=== PATIENT | female | born 1935 | race Caucasian/White ===

== ENCOUNTER 2016-08-17 16:49 | Observation (INO) | payer MEDICARE, BC ==
[~2016-08-17 16:49] MED LIST: ASPIRIN 32325 MG/TAB PO; CEPHALEXIN500 M1 PO; CETIRIZINE10 MG PO; DEBROX OT; FISH OIL500 MG PO; LISINOPRIL5 MG PO; TYLENOL 650MG650 M2 PO
--- NOTE | 2016-08-17 16:50 | NUR ---
received patient for Observation status admission, she is alert but seems confused as to why she is here, after lengthy discussion about UTI she states, "well I didnt even have any symptoms" she was then made aware that her neighbor was concerned about her and felt she needed to be seen by a doctor. She seemed ok with this information. She does ramble about her ears and new wipes wondering if this could be the cause, she also expresses concern about what is on TV, and meeting a friend at [facility], she is encouraged to be patient with us and and she states she will
[2016-08-17 17:58] VITALS: BP 184/99
[2016-08-17 17:59] VITALS: BP 184/99
--- NOTE | 2016-08-17 18:00 | NUR ---
ate a small amount of dinner, talkative, still concerned about the TV until we were able to find [employer] TV and she staes that is what she watches.
[2016-08-17 19:29] VITALS: BP 180/99
--- NOTE | 2016-08-17 19:32 | NUR ---
report to Kelsey SHARMA
[2016-08-17 23:14] VITALS: BP 137/69
[2016-08-18 03:01] VITALS: BP 164/83
[2016-08-18 06:13] VITALS: BP 185/103
--- NOTE | 2016-08-18 06:50 | NUR ---
Report received from EDITH Cole
--- NOTE | 2016-08-18 07:20 | NUR ---
Assessment completed. Pt up to chair. Reports not sleeping well due to bed not being comfortable. Reports neck pain from pillows/bed. Alert and oriented to person, birthdate, place, not to date. Steady gait noted, clear pale yellow urine. Denies shortness of air.
[2016-08-18 11:29] VITALS: BP 173/96
[2016-08-18 14:21] VITALS: BP 164/86
--- NOTE | 2016-08-18 17:40 | NUR ---
Received a call from Remy Siu, pts neighbor. He was checking to see if pt needed a ride home. This nurse inquired to pt's baseline mental status. Remy reported this was pretty close to her baseline mentation. 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 He reported her family was all out state. He is willing to be her contact and gave me his cell phone number to list on her chart. [phone].
--- NOTE | 2016-08-18 17:45 | NUR ---
After initiation of IV rocephin, pt grabbed IV and stated "finally I got that out" as she pulled her IV out with tape still attached. Infusion paused.
--- NOTE | 2016-08-18 17:55 | NUR ---
August, RN successfully placed a new 20g IV to right hand without difficulties. Flushed with no pain or swelling at the site. Restarted NS with Rocephin.
[2016-08-18 18:24] VITALS: BP 183/93
--- NOTE | 2016-08-18 18:55 | NUR ---
Report given to EDITH Trinh. Pt up to chair intermittently confused and attempting to get up without assistance. No reports of pain at this time.
--- NOTE | 2016-08-18 19:30 | NUR ---
REPORT RECEIVED. ASSESSMENT COMPLETE. PT ALERT BUT VERY CONFUSED. PT DOES NOT KNOW WHERE SHE IS AND WHY SHE IS AT THE HOSPITAL. PT TRYING TO GET OUT OF BED. INFORMED HER SHE IS AT THE HOSPITAL AND THAT SHE HAS AN UTI. PT STATED "OH, I DO!" PT DENIES PAIN. ls ARE CLEAR. IV IN R WRIST WNL. PT SETTLED BACK IN BED. DENIES ANY OTHER NEEDS AT THIS TIME.
--- NOTE | 2016-08-18 21:30 | NUR ---
REPORT GIVEN TO EDITH LONG.
--- NOTE | 2016-08-18 22:10 | NUR ---
Patient refused to have blood pressure taken.
[2016-08-19 02:18] VITALS: BP 171/91
--- NOTE | 2016-08-19 04:14 | NUR ---
Bed alarm sounding. Entered patient room. Patient states "where am I, I just need to go to the bathroom." Directed patient to the bathroom. Orientation provided. Ambulated to the bathroom with stand by assist. Steady gait noted. Returned to bed. INT to right hand. Denies pain or needs. Fall precautions in place.
[2016-08-19 06:09] VITALS: BP 180/91
--- NOTE | 2016-08-19 07:30 | NUR ---
Pt alert to self only. Oriented to place and time. oriented to surroundings. Pt ambulates with steady gait. Wanders in sharp multle times " looking for her car to go home" reoriented that she is in the hospital and that her neighbor drove her here. Pt easily redirected back to room.
--- NOTE | 2016-08-19 09:13 | NUR ---
Pt showers with standy by asssit. IV removed during shower by patient. Pt cued with drying and dressing. Tolerates well. Denies pain.
[2016-08-19 10:48] VITALS: BP 191/108
[2016-08-19] MEDS ORDERED: MACROBID 100 M100 MG PO (11:00)
--- NOTE | 2016-08-19 12:36 | NUR ---
Pt leaves with friend/neighbor Mikaela Li. Reviewed discharge instructions with pt and Mikaela. Both verbalize understanding.
[2016-08-28] MEDS ORDERED: MACROBID 100 M100 MG (05:54)
== END 2016-08-19 12:36 | disposition home health service (06) ==
LOC: MED/SURG 16:49
PROVIDERS: ADMIT Nurse Practitioner Family
DX: N39.0 Urinary tract infection, site not specified (principal); R40.4 Transient alteration of awareness; R45.1 Restlessness and agitation; R42 Dizziness and giddiness; I10 Essential (primary) hypertension; Z87.891 Personal history of nicotine dependence; R41.0 Disorientation, unspecified
CPT/HCPCS: A4353; G0378; G0379; J0696; J7030

== ENCOUNTER → 2016-08-22 | Outpatient (CLI) | payer MEDICARE, BC ==
[2016-08-19 10:48] VITALS: BP 191/108
[~2016-08-22] MED LIST changes: +LISINOPRIL10 MG PO; +MACROBID 100 M100 MG; +MACROBID 100 M100 MG PO
== END ==
LOC: LAB 17:21
DX: N39.0 Urinary tract infection, site not specified (principal)

== ENCOUNTER 2016-08-27 13:51 | Emergency (ER) | payer MEDICARE, BC ==
[~2016-08-27 13:51] MED LIST changes: -LISINOPRIL10 MG PO; -MACROBID 100 M100 MG
[2016-08-27] MEDS ORDERED: LISINOPRIL10 MG PO (14:31)
[2016-08-27 14:47] VITALS: BP 184/86
[2016-08-28] MEDS ORDERED: MACROBID 100 M100 MG (05:54)
== END 2016-08-27 14:45 | disposition home or self-care (01) ==
LOC: ED 13:51
DX: I10 Essential (primary) hypertension (principal); Z91.138 Patient's unintentional underdosing of medication regimen for other reason

== ENCOUNTER → 2016-09-13 | Outpatient (CLI) | payer MEDICARE, BC ==
[2016-08-27 14:47] VITALS: BP 184/86
[~2016-09-13] MED LIST changes: +LISINOPRIL10 MG PO; +MACROBID 100 M100 MG
== END ==
LOC: RAD 13:50
DX: I10 Essential (primary) hypertension (principal); F03.90 Unspecified dementia, unspecified severity, without behavioral disturbance, psychotic disturbance, mood disturbance, and anxiety
CPT/HCPCS: Q9967

== ENCOUNTER → 2016-10-15 | Outpatient (CLI) | payer MEDICARE, BC | LOC: LAB 15:27 | DX: R19.7 Diarrhea, unspecified (principal) ==

== ENCOUNTER → 2017-02-26 | Outpatient (CLI) | payer MEDICARE, BC ==
[2017-02-26 14:24] LABS: URINE APPEARANCE CLOUDY; URINE BILIRUBIN NEGATIVE (NEGATIVE); URINE BLOOD TRACE (NEGATIVE); URINE COLOR YELLOW; URINE GLUCOSE NEGATIVE (NEGATIVE); URINE KETONE NEGATIVE (NEGATIVE); URINE NITRATE NEGATIVE (NEGATIVE); URINE PROTEIN(semi-quant) TRACE mg/dL (NEGATIVE); URINE UROBILINOGEN NORMAL (NORMAL)
[2017-02-26 14:25] LABS: HEMATOCRIT 37.5 % (37.0-47.0); HEMOGLOBIN 12.7 g/dL (12.5-16.0); RED BLOOD COUNT 4.05 M/mm3 (4.10-5.30); RED CELL DISTRIBUTION WIDTH 12.9 % (11.5-14.5); URINE LEUKOCYTE ESTERASE 2+ (NEGATIVE); URINE WBC 31-50 /hpf (0-3); WHITE BLOOD COUNT 7.2 K/mm3 (4.8-10.8)
== END ==
LOC: LAB 14:02
PROVIDERS: Family Medicine
DX: R42 Dizziness and giddiness (principal)

== ENCOUNTER → 2017-03-03 | Outpatient (CLI) | payer MEDICARE, BC ==
[2017-03-03 12:48] LABS: BUN/CREATININE RATIO 21.4 (6.0-26.0); CALCIUM 10.3 mg/dL (8.4-10.2); POTASSIUM 4.2 mmol/L (3.6-5.0)
== END ==
LOC: LAB 12:26
PROVIDERS: Family Medicine
DX: R42 Dizziness and giddiness (principal)

== ENCOUNTER → 2017-05-08 | Outpatient (CLI) | payer MEDICARE, BC ==
[2017-05-08 15:23] LABS: URINE COLOR YELLOW
[2017-05-08 15:24] LABS: URINE APPEARANCE CLOUDY; URINE BILIRUBIN NEGATIVE (NEGATIVE); URINE BLOOD NEGATIVE (NEGATIVE); URINE GLUCOSE NEGATIVE (NEGATIVE); URINE KETONE NEGATIVE (NEGATIVE); URINE LEUKOCYTE ESTERASE NEGATIVE (NEGATIVE); URINE NITRATE NEGATIVE (NEGATIVE); URINE PROTEIN(semi-quant) TRACE mg/dL (NEGATIVE); URINE UROBILINOGEN NORMAL (NORMAL)
== END ==
LOC: LAB 09:00
PROVIDERS: Family Medicine
DX: R82.90 Unspecified abnormal findings in urine (principal)

== ENCOUNTER → 2017-05-16 | Outpatient (CLI) | payer MEDICARE ==
[2017-05-16 12:32] LABS: EOS # 0.2 (0.04-0.40); EOS % 2.5 % (1.0-5.0); HEMATOCRIT 37.9 % (37.0-47.0); HEMOGLOBIN 12.5 g/dL (12.5-16.0); LYMPH# 1.8 (1.50-4.00); MEAN CELL VOLUME 92 fl (78-100); MEAN CORPUSCULAR HEMOGLOBIN 30 pg (27-31); MEAN CORPUSCULAR HGB CONC 33 g/dL (33-37); MEAN PLATELET VOLUME 11.2 fl (7.4-10.4); MONO # 0.5 (0.20-0.80); NEU # 4.4 (1.40-6.50); PLATELET COUNT 206 K/mm3 (130-400); RED BLOOD COUNT 4.12 M/mm3 (4.10-5.30); RED CELL DISTRIBUTION WIDTH 12.9 % (11.5-14.5); WHITE BLOOD COUNT 6.9 K/mm3 (4.8-10.8)
[2017-05-16 12:54] LABS: BUN/CREATININE RATIO 36.5 (6.0-26.0); CALCIUM 10.3 mg/dL (8.4-10.2); POTASSIUM 4.2 mmol/L (3.6-5.0); TOTAL BILIRUBIN 0.7 mg/dL (0.2-1.3); TOTAL PROTEIN 6.8 g/dL (6.3-8.2)
== END ==
LOC: LAB 12:12
PROVIDERS: Family Medicine
DX: I10 Essential (primary) hypertension (principal); D17.21 Benign lipomatous neoplasm of skin and subcutaneous tissue of right arm; R63.4 Abnormal weight loss

== ENCOUNTER → 2017-09-11 | Outpatient (CLI) | payer MEDICARE ==
[2017-09-11 15:57] LABS: EOS # 0.2 (0.04-0.40); EOS % 2.5 % (1.0-5.0); HEMATOCRIT 35.1 % (37.0-47.0); HEMOGLOBIN 11.6 g/dL (12.5-16.0); LYMPH# 2.4 (1.50-4.00); MEAN CELL VOLUME 94 fl (78-100); MEAN CORPUSCULAR HEMOGLOBIN 31 pg (27-31); MEAN CORPUSCULAR HGB CONC 33 g/dL (33-37); MEAN PLATELET VOLUME 10.2 fl (7.4-10.4); MONO # 0.6 (0.20-0.80); NEU # 5.6 (1.40-6.50); PLATELET COUNT 331 K/mm3 (130-400); RED BLOOD COUNT 3.73 M/mm3 (4.10-5.30); RED CELL DISTRIBUTION WIDTH 12.7 % (11.5-14.5); WHITE BLOOD COUNT 8.9 K/mm3 (4.8-10.8)
[2017-09-11 16:15] LABS: ALBUMIN 4.1 g/dL (3.5-5.0); BUN/CREATININE RATIO 33.3 (6.0-26.0); CALCIUM 10.2 mg/dL (8.4-10.2); POTASSIUM 4.2 mmol/L (3.6-5.0); TOTAL BILIRUBIN 0.3 mg/dL (0.2-1.3); TOTAL PROTEIN 7.7 g/dL (6.3-8.2)
== END ==
LOC: RAD 15:16
PROVIDERS: Family Medicine
DX: R91.8 Other nonspecific abnormal finding of lung field (principal); M19.012 Primary osteoarthritis, left shoulder; M19.011 Primary osteoarthritis, right shoulder; R05 Cough; R63.0 Anorexia; M79.9 Soft tissue disorder, unspecified; L74.9 Eccrine sweat disorder, unspecified; I10 Essential (primary) hypertension; F01.50 Vascular dementia, unspecified severity, without behavioral disturbance, psychotic disturbance, mood disturbance, and anxiety

== ENCOUNTER → 2018-01-26 | Outpatient (CLI) | payer MEDICARE ==
[2018-01-26 10:44] LABS: URINE APPEARANCE HAZY; URINE BILIRUBIN NEGATIVE (NEGATIVE); URINE BLOOD NEGATIVE (NEGATIVE); URINE COLOR YELLOW; URINE GLUCOSE NEGATIVE (NEGATIVE); URINE KETONE NEGATIVE (NEGATIVE); URINE LEUKOCYTE ESTERASE NEGATIVE (NEGATIVE); URINE NITRATE NEGATIVE (NEGATIVE); URINE PROTEIN(semi-quant) TRACE mg/dL (NEGATIVE); URINE UROBILINOGEN NORMAL (NORMAL)
[2018-01-26 10:45] LABS: URINE MUCUS PRESENT (NOT PRESENT)
== END ==
LOC: LAB 08:22
PROVIDERS: Family Medicine
DX: N39.0 Urinary tract infection, site not specified (principal)

== ENCOUNTER → 2018-01-28 | Outpatient (CLI) | payer MEDICARE ==
[2018-01-28 15:33] LABS: EOS # 0.5 (0.04-0.40); EOS % 5.7 % (1.0-5.0); HEMATOCRIT 34.2 % (37.0-47.0); HEMOGLOBIN 11.2 g/dL (12.5-16.0); LYMPH# 1.8 (1.50-4.00); MEAN CELL VOLUME 94 fl (78-100); MEAN CORPUSCULAR HEMOGLOBIN 31 pg (27-31); MEAN CORPUSCULAR HGB CONC 33 g/dL (33-37); MEAN PLATELET VOLUME 10.4 fl (7.4-10.4); MONO # 0.8 (0.20-0.80); NEU # 5.2 (1.40-6.50); PLATELET COUNT 250 K/mm3 (130-400); RED BLOOD COUNT 3.63 M/mm3 (4.10-5.30); RED CELL DISTRIBUTION WIDTH 13.1 % (11.5-14.5); WHITE BLOOD COUNT 8.3 K/mm3 (4.8-10.8)
== END ==
LOC: LAB 15:09
PROVIDERS: Family Medicine
DX: R05 Cough (principal)

== ENCOUNTER → 2018-04-17 | Outpatient (CLI) | payer MEDICARE ==
[2018-04-17 20:48] LABS: URINE APPEARANCE CLOUDY; URINE COLOR YELLOW
[2018-04-17 20:49] LABS: URINE BILIRUBIN NEGATIVE (NEGATIVE); URINE BLOOD 50 ery/uL (NEGATIVE); URINE GLUCOSE NEGATIVE (NEGATIVE); URINE KETONE NEGATIVE (NEGATIVE); URINE LEUKOCYTE ESTERASE 2+ (NEGATIVE); URINE NITRATE NEGATIVE (NEGATIVE); URINE PROTEIN(semi-quant) 1+ mg/dL (NEGATIVE); URINE UROBILINOGEN NORMAL (NORMAL); URINE WBC >50 /hpf (0-3)
[2018-04-17 20:50] LABS: URINE MUCUS PRESENT (NOT PRESENT)
== END ==
LOC: LAB 18:10
PROVIDERS: Family Medicine
DX: N39.0 Urinary tract infection, site not specified (principal); R30.0 Dysuria